=== PATIENT | female | born 1975 | race Hispanic/Latino ===

== ENCOUNTER → 2022-10-24 | Day surgery (SDC) | payer OTHER ==
[~2022-10-24] MED LIST: BIOTIN PLUS 5,1 EACH PO; CIPRO500 MG PO; DICYCLOMINE HCL20 MG PO; DONNATAL/LIDOCAINE/MAALOX 30 ML SUSP PO STA; ESTRADIOL TOP; EUTHYROX25 MCG PO; FENTANYL CITRATE/PF 100MCG/2 ML INJ ONE; GABAPENTIN300 MG PO; HYDROXYZIN10 MG/5 ML PO; IBUPROFEN200 MG PO; LIDOCAINE HCL 2% LOCAL INJ 5 ML SDV VIAL INJ ONE; METOCLOPRAMIDE HCL 10 MG/2ML VIAL ONE; MYRBETRIQ50 MG PO; OMEPRAZOLE40 MG PO; ONDANSETRON HCL INJ 2MG/ML 2ML 2 MG/ML VIAL ONE; PANTOPRAZOLE SO40 MG PO; POVIDONE IODINE 0.05% 0.05 % ML PO ONE; PROPOFOL IV EMULSION 10 MG/ML 20 ML VIAL ONE; SUCRALFATE1 GM PO; VIT D2 PO
[2022-10-24 15:35] VITALS: BP 114/65
== END | disposition home or self-care (01) ==
LOC: OR 13:05
PROVIDERS: ATTEND Internal Medicine Gastroenterology
DX: K29.70 Gastritis, unspecified, without bleeding (principal); K31.7 Polyp of stomach and duodenum; K20.90 Esophagitis, unspecified without bleeding; K21.9 Gastro-esophageal reflux disease without esophagitis; Z86.010 Personal history of colon polyps; D64.9 Anemia, unspecified; Z79.899 Other long term (current) drug therapy; Z80.0 Family history of malignant neoplasm of digestive organs
CPT/HCPCS: 43239; 43251; J2001; J2405; J2765

== ENCOUNTER → 2022-11-25 | Day surgery (SDC) | payer OTHER ==
[~2022-11-25] MED LIST changes: -DONNATAL/LIDOCAINE/MAALOX 30 ML SUSP PO STA; +HYOSCYAMINE SULFATE 0.5 MG/ML INJ ONE; +LACTATED RINGER'S 1,000 ML ONE; +MIDAZOLAM HCL 2 MG/2 ML VIAL ONE
[2022-11-25 14:00] VITALS: BP 106/78
== END | disposition home or self-care (01) ==
LOC: OR 11:37
PROVIDERS: ATTEND Internal Medicine Gastroenterology
DX: K52.9 Noninfective gastroenteritis and colitis, unspecified (principal); K62.89 Other specified diseases of anus and rectum; K64.8 Other hemorrhoids; R10.12 Left upper quadrant pain; Z90.49 Acquired absence of other specified parts of digestive tract; Z79.899 Other long term (current) drug therapy; Z68.26 Body mass index [BMI] 26.0-26.9, adult; Z80.0 Family history of malignant neoplasm of digestive organs
CPT/HCPCS: 45380; J1980; J2001; J2250; J2405; J2704; J2765; J3010; J7121; 45378

== ENCOUNTER 2024-04-04 19:12 | Emergency (ER) | payer OTHER ==
[~2024-04-04] VITALS: Ht 152.4 cm; Wt 60.3 kg
[~2024-04-04 19:12] MED LIST changes: +ATORVASTATIN CA20 MG PO; +CARAFATE1 GM PO; +DICYCLOMINE HCL10 MG PO; -FENTANYL CITRATE/PF 100MCG/2 ML INJ ONE; +FLOMAX0.4 MG PO; +HYDROXYZINE HCL25 MG PO; -HYOSCYAMINE SULFATE 0.5 MG/ML INJ ONE; -LACTATED RINGER'S 1,000 ML ONE; -LIDOCAINE HCL 2% LOCAL INJ 5 ML SDV VIAL INJ ONE; -METOCLOPRAMIDE HCL 10 MG/2ML VIAL ONE; -MIDAZOLAM HCL 2 MG/2 ML VIAL ONE; -ONDANSETRON HCL INJ 2MG/ML 2ML 2 MG/ML VIAL ONE; -POVIDONE IODINE 0.05% 0.05 % ML PO ONE; -PROPOFOL IV EMULSION 10 MG/ML 20 ML VIAL ONE
[2024-04-04 19:49] VITALS: TEMP 98.8
[2024-04-04 20:14] LABS: BASOPHILS % 0.1 % (0.0-1.0); EOSINOPHILS % 0.2 % (0.0-6.0); HEMATOCRIT 47.6 % (34.2-44.1); HEMOGLOBIN 16.3 g/dL (12.0-16.0); LYMPHOCYTES # (AUTO) 0.5 (1.0-3.2); LYMPHOCYTES % 5.7 % (18.0-39.1); MEAN CORPUSCULAR HEMOGLOBIN 29.6 pg (28-32); MEAN CORPUSCULAR HGB CONC 34.2 g/dL (31-35); MEAN CORPUSCULAR VOLUME 86.4 fL (81-99); MONOCYTES # (AUTO) 0.3 (0.2-0.8); MONOCYTES % 3.8 % (4.4-11.3); NEUTROPHILS # (AUTO) 8.1 (2.1-6.9); NEUTROPHILS % 89.9 % (38.7-80.0); PLATELET COUNT 191 x10e3/uL (140-360); RED BLOOD COUNT 5.51 x10e6/uL (3.6-5.1); RED CELL DISTRIBUTION WIDTH 13.2 % (11.7-14.4); WHITE BLOOD COUNT 9.06 x10e3/uL (4.8-10.8)
[2024-04-04 20:35] LABS: ALBUMIN 4.8 g/dL (3.5-5.0); ALBUMIN/GLOBULIN RATIO 1.4 (0.8-2.0); ANION GAP 20.2 mmol/L (8-16); BILIRUBIN,TOTAL 1.6 mg/dL (0.2-1.2); CALCIUM 9.7 mg/dL (8.4-10.2); CREATININE, SERUM 0.84 mg/dL (0.57-1.11); POTASSIUM 4.2 mmol/L (3.5-5.1); TOTAL PROTEIN 8.3 g/dL (6.5-8.1)
[2024-04-04] MEDS ORDERED: IOPAMIDOL 370 MG/ML 100 ML INFUS..BTL INJ ONE (20:44)
[2024-04-04 21:11] LABS: BILIRUBIN,URINE NEGATIVE (NEGATIVE); CLARITY,URINE SL CLOUDY (CLEAR); COLOR,URINE YELLOW (YELLOW); GLUCOSE, URINE NEGATIVE (NEGATIVE); KETONES,URINE 2+ (NEGATIVE); LEUKOCYTE ESTERASE ,URINE NEGATIVE (NEGATIVE); NITRITE,URINE NEGATIVE (NEGATIVE); PH,URINE 7.5 (5 - 7); PROTEIN,URINE DIPSTICK TRACE (NEGATIVE); URINE UROBILINOGEN 0.2 mg/dL (0.2 - 1)
[2024-04-04 21:12] LABS: PREGNANCY TEST, URINE NEGATIVE (NEGATIVE)
[2024-04-04 21:25] LABS: BACTERIA,URINE MODERATE /HPF; EPITHELIAL CELLS,URINE MODERATE /LPF
[2024-04-04] MEDS: Morphine 4mg INJECTION 4 MG/ML INJ IV STA (21:26)
[2024-04-04] MEDS: ONDANSETRON HCL INJ 2MG/ML 2ML 2 MG/ML VIAL IV STA (21:26)
[2024-04-04] MEDS: PROMETHAZINE 25MG/ NS 50ML (IV) IV STA (21:26)
[2024-04-04 21:31] VITALS: PULSE 102; RESP 19
[2024-04-04] MEDS ORDERED: DICYCLOMINE HCL10 MG PO (22:54)
[2024-04-04 23:03] VITALS: BP 124/71; PULSE 99; RESP 16; TEMP 99; O2SAT 100
== END 2024-04-04 23:10 | disposition home or self-care (01) ==
LOC: ER 19:18
DX: R10.30 Lower abdominal pain, unspecified (principal); R19.7 Diarrhea, unspecified; R11.2 Nausea with vomiting, unspecified; K21.9 Gastro-esophageal reflux disease without esophagitis; E03.9 Hypothyroidism, unspecified
CPT/HCPCS: 36415; 74177; 80053; 81001; 81025; 83690; 85025; 99284; J2270; J2405; J2550; Q9967

== ENCOUNTER 2025-02-07 13:32 | Emergency (ER) | payer OTHER ==
[~2025-02-07] VITALS: Ht 152.4 cm; Wt 67.1 kg
[2025-02-07 14:10] LABS: BASOPHILS % 0.1 % (0.0-1.0); EOSINOPHILS % 0.4 % (0.0-6.0); HEMATOCRIT 44.8 % (34.2-44.1); HEMOGLOBIN 15.1 g/dL (12.0-16.0); LYMPHOCYTES # (AUTO) 0.8 (1.0-3.2); LYMPHOCYTES % 9.1 % (18.0-39.1); MEAN CORPUSCULAR HEMOGLOBIN 28.5 pg (28-32); MEAN CORPUSCULAR HGB CONC 33.7 g/dL (31-35); MEAN CORPUSCULAR VOLUME 84.7 fL (81-99); MONOCYTES # (AUTO) 0.3 (0.2-0.8); NEUTROPHILS # (AUTO) 7.5 (2.1-6.9); PLATELET COUNT 204 x10e3/uL (140-360); RED BLOOD COUNT 5.29 x10e6/uL (3.6-5.1); RED CELL DISTRIBUTION WIDTH 12.8 % (11.7-14.4); WHITE BLOOD COUNT 8.57 x10e3/uL (4.8-10.8)
[2025-02-07 14:18] LABS: CLARITY,URINE CLEAR (CLEAR); COLOR,URINE YELLOW (YELLOW); GLUCOSE, URINE NEGATIVE (NEGATIVE); KETONES,URINE NEGATIVE (NEGATIVE); LEUKOCYTE ESTERASE ,URINE NEGATIVE (NEGATIVE); NITRITE,URINE NEGATIVE (NEGATIVE); PH,URINE 7 (5 - 7); PROTEIN,URINE DIPSTICK NEGATIVE (NEGATIVE); URINE UROBILINOGEN 0.2 mg/dL (0.2 - 1)
[2025-02-07 14:19] LABS: BILIRUBIN,URINE NEGATIVE (NEGATIVE)
[2025-02-07 14:20] LABS: WBC,URINE (MAN) 0-5 /HPF (0-5)
[2025-02-07 14:21] LABS: LIPASE 33 U/L (8-78)
[2025-02-07 14:21] LABS: BACTERIA,URINE FEW /HPF; EPITHELIAL CELLS,URINE FEW /LPF
[2025-02-07 14:22] LABS: ALBUMIN 4.5 g/dL (3.5-5.0); ALBUMIN/GLOBULIN RATIO 1.4 (0.8-2.0); ANION GAP 16.7 mmol/L (8-16); BILIRUBIN,TOTAL 0.6 mg/dL (0.2-1.2); CREATININE, SERUM 0.74 mg/dL (0.57-1.11); POTASSIUM 3.7 mmol/L (3.5-5.1); TOTAL PROTEIN 7.8 g/dL (6.5-8.1)
[2025-02-07 14:28] LABS: TROPONIN I < 0.001 ng/mL (0-0.300)
[2025-02-07] MEDS: SODIUM CHLORIDE 0.9% 1000ML 1,000 ML IV ONE (14:42)
[2025-02-07] MEDS: KETOROLAC TROMETHAMINE 30 MG/ML VIAL IV STA (14:43)
[2025-02-07] MEDS: ONDANSETRON HCL INJ 2MG/ML 2ML 2 MG/ML VIAL IV STA (14:43)
[2025-02-07 14:44] LABS: INR 0.84; PROTHROMBIN TIME 12.3 seconds (11.9-14.5)
[2025-02-07 14:45] LABS: PARTIAL THROMBOPLASTIN TIME 30.5 seconds (23.8-35.5)
[2025-02-07 15:10] VITALS: BP 119/62; PULSE 110; RESP 20; TEMP 99.4
[2025-02-07] MEDS: Morphine 2mg Syringe 2 MG/ML SYR IV ONE (15:54)
[2025-02-07] MEDS ORDERED: Morphine 2mg Syringe 2 MG/ML SYR ONE (15:56)
[2025-02-07] MEDS ORDERED: IOPAMIDOL 370 MG/ML 100 ML INFUS..BTL INJ ONE (16:39)
[2025-02-07 17:01] VITALS: PULSE 100; RESP 20; TEMP 97.8; O2SAT 98
[2025-02-07] MEDS ORDERED: ONDANSETRON ODT4 MG PO (17:11)
== END 2025-02-07 17:35 | disposition home or self-care (01) ==
LOC: ER 14:01
DX: R10.31 Right lower quadrant pain (principal); K52.9 Noninfective gastroenteritis and colitis, unspecified; M71.58 Other bursitis, not elsewhere classified, other site; R11.2 Nausea with vomiting, unspecified; E03.9 Hypothyroidism, unspecified; K21.9 Gastro-esophageal reflux disease without esophagitis; Z87.11 Personal history of peptic ulcer disease
CPT/HCPCS: 36415; 71045; 74177; 80053; 81001; 83605; 83690; 84484; 85025; 85610; 85730; 87086; 99284; J0696; J1885; J2270; J2405; J7030; Q9967; 93005